=== PATIENT | female | born 1990 | race Two or more races ===

== ENCOUNTER 2025-01-28 13:15 | Inpatient (IN) | payer OTHER ==
[~2025-01-28] VITALS: Ht 160 cm; Wt 83.9 kg
[2025-02-09] VITALS (7 sets, daily range): BP systolic 113–132; BP diastolic 64–75
[2025-02-09] MEDS ORDERED: RINGERS SOLUTION,LACTATED 1,000 ML IV SCH (02:30)
[2025-02-09] MEDS ORDERED: PRENATAL CAPLE1 EAC1 PO (02:59)
[2025-02-09 03:14] LABS: HEMOGLOBIN 13.5 g/dL (12.0-15.00); MEAN CELL VOLUME 89.3 fL (80.00-100.00); MEAN CORPUSCULAR HEMOGLOBIN 30.8 pg (27.00-32.0); MEAN CORPUSCULAR HGB CONC 34.5 g/dl (32.0-36.0); RED BLOOD COUNT 4.37 M/uL (4.00-6.00); RED CELL DISTRIBUTION WIDTH 13.4 % (11.5-14.5)
[2025-02-09 03:33] LABS: PLATELET COUNT 122 K/uL (150-450)
[2025-02-09 03:38] LABS: INR < 0.93; PARTIAL THROMBOPLASTIN TIME 25.4 SECONDS (22.0-34.0); PROTHROMBIN TIME 10.1 SECONDS (9.0-11.5)
[2025-02-09 03:53] LABS: BILIRUBIN TOTAL 0.49 mg/dL (0.3-1.2); CREATININE SERUM 0.58 mg/dL (0.55-1.02); GFR 119.72; GLOBULINA 3.6 G/DL (2.4-3.5); POTASSIUM 3.86 mEq/L (3.5-5.1); TOTAL PROTEIN 6.6 gm/dL (6.4-8.2)
[2025-02-09] MEDS ORDERED: LIDOCAINE HCL 1% 10ML VIAL ONE (04:26)
[2025-02-09] MEDS ORDERED: ERYTHROMYCIN BASE OPHT 1GM EACH TUBE OP ONE ×2 (04:26→05:00)
[2025-02-09] MEDS ORDERED: CHLORHEXIDINE GLUCONATE 120 ML BOTTLE TOP ONE (04:26)
[2025-02-09] MEDS ORDERED: OXYTOCIN 20 UNITS/1000ML RL PIGGYBAG IV ONE (04:26)
[2025-02-09] MEDS ORDERED: LIDOCAINE HCL 1% 10ML VIAL PERCUT ONE (05:00)
[2025-02-09] MEDS ORDERED: CHLORHEXIDINE GLUCONATE 120 ML BOTTLE TP SCH (05:00)
[2025-02-09] MEDS ORDERED: OXYTOCIN 1,000 ML IV SCH (05:00)
[2025-02-09] MEDS ORDERED: IBUprofen 400 MG TABLET PO PRN (05:00)
[2025-02-09] MEDS ORDERED: SOD FERRIC GLUC COMPLX/SUCROSE 62.5 MG/5 ML AMPUL IV NR (11:00)
[2025-02-09 14:19] LABS: HEMATOCRIT 31.9 % (36.0-45.00); HEMOGLOBIN 10.7 g/dL (12.0-15.00); MEAN CELL VOLUME 90.8 fL (80.00-100.00); MEAN CORPUSCULAR HEMOGLOBIN 30.6 pg (27.00-32.0); MEAN CORPUSCULAR HGB CONC 33.7 g/dl (32.0-36.0); RED BLOOD COUNT 3.51 M/uL (4.00-6.00); RED CELL DISTRIBUTION WIDTH 13.1 % (11.5-14.5)
[2025-02-09 14:27] LABS: PLATELET COUNT 118 K/uL (150-450)
[2025-02-09] MEDS ORDERED: SOD FERRIC GLUC COMPLX/SUCROSE 62.5 MG/5 ML AMPUL IV SCH (21:00)
[2025-02-10] VITALS: BP 100/60
[2025-02-10 08:16] VITALS: BP 107/74
[2025-02-10] MEDS ORDERED: IRON FUM,PS/FOLIC/BCOMP,C NO.9 1 CAP CAPSULE PO SCH (09:00)
[2025-02-10 10:39] LABS: HEMATOCRIT 32.1 % (36.0-45.00); HEMOGLOBIN 11.1 g/dL (12.0-15.00); MEAN CELL VOLUME 90.5 fL (80.00-100.00); MEAN CORPUSCULAR HEMOGLOBIN 31.2 pg (27.00-32.0); MEAN CORPUSCULAR HGB CONC 34.5 g/dl (32.0-36.0); RED BLOOD COUNT 3.54 M/uL (4.00-6.00); RED CELL DISTRIBUTION WIDTH 13.5 % (11.5-14.5)
[2025-02-10 10:42] LABS: PLATELET COUNT 112 K/uL (150-450)
[2025-02-10 11:22] LABS: ALBUMIN 2.4 gm/dL (3.4-5.0); BILIRUBIN TOTAL 0.37 mg/dL (0.3-1.2); CALCIUM 8.7 mg/dL (8.5-10.1); CREATININE SERUM 0.56 mg/dL (0.55-1.02); GFR 124.67; GLOBULINA 2.7 G/DL (2.4-3.5); POTASSIUM 3.96 mEq/L (3.5-5.1); TOTAL PROTEIN 5.1 gm/dL (6.4-8.2)
[2025-02-10 17:32] VITALS: BP 111/74
[2025-02-10 21:14] VITALS: BP 112/73
[2025-02-10 23:58] VITALS: BP 113/69
[2025-02-11 08:00] VITALS: BP 114/77
== END 2025-02-11 13:44 | disposition home or self-care (01) | DRG 807 ==
LOC: LDR 02-09 02:16 → OB/GYN 02-09 02:16
PROVIDERS: Obstetrics & Gynecology; ADMIT Obstetrics & Gynecology Maternal & Fetal Medicine; ATTEND Obstetrics & Gynecology Maternal & Fetal Medicine
PROC: 10E0XZZ Delivery of Products of Conception, External Approach (ICD-10-PCS; principal; 2025-02-09)
PROC: 0KQM0ZZ Repair Perineum Muscle, Open Approach (ICD-10-PCS; 2025-02-09)
PROC: 4A1HXCZ Monitoring of Products of Conception, Cardiac Rate, External Approach (ICD-10-PCS; 2025-02-09)
DX: O70.1 Second degree perineal laceration during delivery (principal); Z37.0 Single live birth; Z3A.39 39 weeks gestation of pregnancy